=== PATIENT | female | born 1965 | race Caucasian/White ===

== ENCOUNTER 2020-04-21 12:24 | Outpatient (CLI) | payer MEDICAID ==
--- NOTE | 2020-04-22 | Consultation ---
DATE OF CONSULTATION: 04/21/2020 CONSULTING PHYSICIAN: Michael Banks MD CHIEF COMPLAINT: GERD. HISTORY OF PRESENT ILLNESS: This is a very pleasant 55-year-old female with past medical history and GERD, was referred to us for evaluation for endoscopy. PAST MEDICAL HISTORY: 1. . 2. GERD. PAST SURGICAL HISTORY: None. MEDICATIONS: Carafate and omeprazole. FAMILY HISTORY: No family history of GI malignancies. SOCIAL HISTORY: The patient denies any tobacco, alcohol, or drug abuse. ALLERGIES: Vancomycin, penicillin, gentamicin. REVIEW OF SYSTEMS: Positive for nausea, bloating, GERD, and some loose stools. Last colonoscopy about 3 years ago. PHYSICAL EXAMINATION: HEENT: Normocephalic and atraumatic. Sclerae anicteric. NECK: Supple. No evidence of obvious lymphadenopathy. CARDIOVASCULAR: Regular rate and rhythm. Plus S1, S2. LUNGS: Clear to auscultation bilaterally. ABDOMEN: Positive bowel sounds. Soft and nontender. No rebound. No guarding. No peritoneal sign. EXTREMITIES: No cyanosis, no clubbing, no edema. ASSESSMENT AND PLAN: This is a 55-year-old female with chronic GERD, currently on PPI twice a day. Given age of 55, no prior endoscopy GERD not completely responding to PPI, needs an endoscopy. Risks and benefits of the procedure were explained to the patient. She understood. Plan to schedule her when authorization is obtained. Michael Banks M.D. DR: ERICKSON JOB#: [id number] CC:
== END 2020-04-21 15:43 | disposition home or self-care (01) ==
LOC: PAN 12:24
DX: K21.9 Gastro-esophageal reflux disease without esophagitis (principal); Z79.899 Other long term (current) drug therapy; Z88.0 Allergy status to penicillin; R11.0 Nausea; R14.0 Abdominal distension (gaseous)
CPT/HCPCS: G0463

== ENCOUNTER 2020-06-02 14:14 | Outpatient (CLI) | payer MEDICAID ==
[2020-06-03 09:57] VITALS: BP 123/86
[2020-06-03] MEDS ORDERED: OMEPRAZOLE40 M1 ORAL (09:57)
[2020-06-03] MEDS ORDERED: CARAFATE1 G1 ORAL (09:57)
[2020-06-03] MEDS ORDERED: LOSARTAN POTASS25 MG ORAL (09:57)
== END 2020-06-02 16:14 | disposition home or self-care (01) ==
LOC: PAN 14:14
DX: R10.9 Unspecified abdominal pain (principal)
CPT/HCPCS: 99212